=== PATIENT | male | born 1985 | race Hispanic/Latino ===

== ENCOUNTER 2021-07-04 04:06 | Emergency (ER) | payer OTHER ==
[2021-07-04] MEDS ORDERED: CETIRIZINE HCL 5 MG TABLET PO ONE ×2 (04:41→05:00)
[2021-07-04] MEDS ORDERED: ACETAMINOPHEN 500 MG TABLET ONE (04:41)
[2021-07-04] MEDS ORDERED: CETI10TA87 PO (04:42)
[2021-07-04 04:51] VITALS: BP 122/84
[2021-07-04] MEDS ORDERED: ACETAMINOPHEN 500 MG TABLET PO ONE (05:00)
== END 2021-07-04 04:52 | disposition home or self-care (01) ==
LOC: EDH 04:06
DX: J06.9 Acute upper respiratory infection, unspecified (principal)
CPT/HCPCS: 87804; 87880